=== PATIENT | male | born 1945 | race Caucasian/White ===

== ENCOUNTER 2018-02-06 01:39 | Inpatient (IN) | payer MEDICARE, MEDICAID ==
--- NOTE | 2018-02-06 02:37 | PDOC.FPRHP ---
- History of Present Illness Chief Complaint: Progressive SOB History of Present Illness: 73 yo M w/hx of CHF, HTN, CAD, DM2 here with complaint of progressive SOB and exercise intolerance. He states that for the past month he has noticed a progressively worsening SOB especially with activity. Over the past 4 days he has noticed significant swelling in his legs and a productive cough. He also complaints of having to prop himself up to sleep for the past few weeks. He states that he is on a "whole bag of medicine" at home, but has not been taking the meds for the past few months. He denies chest pain, headache, change in vision, fever or chills. - Allergies/Adverse Reactions Allergies Allergy/AdvReac Type Severity Reaction Status Date / Time No Known Allergies Allergy Unverified 03/29/15 09:58 - Home Medications Medication Instructions Recorded Confirmed Type Aspirin 1 tab PO DAILY 02/06/18 02/06/18 History Budesonide-Formoterol [Symbicort 2 puff INH BID 02/06/18 02/06/18 History 80-4.5] Carvedilol [Coreg] 1 tab PO BID 02/06/18 02/06/18 History Furosemide [Lasix] 20 mg PO DAILY 02/06/18 02/06/18 History Ipratropium-Albuterol [Combivent] 2 puff INH QID 02/06/18 02/06/18 History Nitroglycerin 1 tab SL PRN PRN 02/06/18 02/06/18 History Pantoprazole [Protonix] 1 tab PO DAILY 02/06/18 02/06/18 History Pravastatin Sodium [Pravachol] 1 tab PO BID 02/06/18 02/06/18 History - History PMHx: HTN CHF COPD DM Hep C Polysubstance abuse CAD PSHx: s/p stent FHx: Maternal COPD, Alzheimer's Dementia Paternal Anxiety, HTN Social: 40 pack year smoking hx 16-32 oz beer daily Marijuana, Meth - Review of Systems General: denies: fever/chills, weight/appetite/sleep changes Eyes: denies: vision changes ENT: denies: nasal congestion Respiratory: reports: cough (productive), shortness of breath, exercise intolerance Cardiovascular: reports: edema, orthopnea. denies: chest pain Gastrointestinal: denies: nausea, vomiting Genitourinary: denies: polyuria Skin: denies: rashes, lesions Musculoskeletal: denies: pain, tenderness Neurological: denies: numbness, syncope Psychological: denies: anxiety, depression - Vital signs BP: 127/95 HR: 94 RR: 20 Tmax: 97.8 Pox: 100% on RA Wt: 93 kg - Physical Exam Constitutional: NAD, awake, alert and oriented HEENT: normocephalic and atraumatic, PERRLA, EOMI, no scleral icterus Neck: supple, FROM, trachea midline Chest: no-tender to palpation Heart: RRR, normal S1/S2, no murmurs/rubs/gallops, other (1+ pitting edema to knees b/l) Lungs: no respiratory distress, good air movement, no wheezing, other (mild rales at bases) Abdomen: soft, non-tender, bowel sounds present, no masses/distention Musculoskeletal: normal structure, normal tone Neurological: no focal deficit, CN II-XII intact Skin: no rash/lesions Heme/Lymphatic: no unusual bruising or bleeding Psychiatric: normal mood and affect FMR H&P: Results - Labs Result Diagrams: 02/06/18 02:46 02/06/18 02:46 - EKG Interpretation EKG: NSR, T wave inversions I, II, V5 and 6, LBBB FMR H&P: A/P - Problem List (1) Acute exacerbation of congestive heart failure Current Visit: Yes Status: Acute Priority: High Code(s): I50.9 - HEART FAILURE, UNSPECIFIED Qualifiers: Heart failure type: unspecified Qualified Code(s): I50.9 - Heart failure, unspecified (2) HTN (hypertension) Current Visit: Yes Status: Chronic Priority: Medium Code(s): I10 - ESSENTIAL (PRIMARY) HYPERTENSION (3) CAD (coronary artery disease) Current Visit: Yes Status: Chronic Priority: Medium Code(s): I25.10 - ATHSCL HEART DISEASE OF [place] CORONARY ARTERY W/O ANG PCTRS (4) Elevated troponin Current Visit: Yes Status: Acute Priority: High Code(s): R74.8 - ABNORMAL LEVELS OF OTHER SERUM ENZYMES (5) COPD (chronic obstructive pulmonary disease) Current Visit: Yes Status: Chronic Priority: Medium (6) Hepatitis C Current Visit: Yes Status: Chronic Priority: Low Code(s): B19.20 - UNSPECIFIED VIRAL HEPATITIS C WITHOUT HEPATIC COMA (7) ABDIEL (acute kidney injury) Current Visit: Yes Status: Acute Code(s): N17.9 - ACUTE KIDNEY FAILURE, UNSPECIFIED - Plan Acute CHF exacerbation - pt given 40 IV lasix in ED, continue to diurese - pt currently does not have a new O2 requirement - unclear as to if or when the patient had an echo, will order for am - strict i/o - pt has not been taking his coreg for months, will hold while here and restart when back to baseline - admit to tele HTN - restart home meds, adjust dose as needed CAD - start high intensity statin ABDIEL vs CKD - Continue to diurese, this is likely dt poor perfusion rather than low volume given overloaded status - Monitor BMP DM - per pt he has hx of dm, however he is not on any meds and A1c is 5.8 Hep C - per history. No hx of treatment. Will need outpt follow up. COPD - appears to be controlled at this time - continue home meds - monitor O2 sats and work of breathing Elevated trops - repeat x3 w/EKG - likely related to demand Elevated BNP - secondary to volume overload. Diurese as above PPx lovenox Diet heart healthy, low carb Code DNR Dispo: Pt is currently stable and having no problem oxygenating. Will work to diurese while monitoring respiratory status. Likely length of stay 48-72 hours. FMR H&P: Upper Level - Pertinent history CC: Shortness of Breath Patient seen 02/06/18 at 0215 PCP: None. City call admission 73 year old white male presents with acute worsening of dyspnea. He has been short of breath for several months and noticed it was getting harder and harder to walk without getting out of breath. He was released from half-way about 4 months ago and states he has not been taking his medications but "I don't know why". Today, he noticed he could not walk to the bathroom without getting out of breath. He reports orthopnea, cough, abdominal swelling, peripheral edema, and nausea. Denies fevers, chills, headache, chest pain/jaw pain/neck pain/back pain, vomiting, and diarrhea. 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 Pulses full and equal in upper extremities bilaterally Respiratory: Faint bibasilar rales, no wheezing or rhonchi, breathing nonlabored Abdomen: NT, no guarding/rebound. Normal bowel sounds. Extremities: 1+ edema to tibial tuberosity bilaterally. Equal movements bilaterally. Moves all extremities Skin: Stasis dermatitis discoloartion of lowe rextremities Neuro: CN II - XII intact. No focal deficits Psych: Mood and affect appropraite. Judgement and insight intact. - Plan Date/Time: 02/06/18236 ITravis DO, have evaluated this patient and agree with findings/plan as outlined by video editing intern resident. Pertinent changes/additions are listed here. 73 year old white male presents with: 1) Acute CHF exacerbation - Admit to telemetry. Not requiring O2 supplementation. Continue iv Lasix, strict I&Os, echo in the morning. Consider cards consult in morning to help patient establish with a retail shift supervisor. Refer to heart failure clinic on discharge 2) Incomplete bundle branch block on EKG - Patient's symptoms more consistent with CHF exacerbation. Likely chronic changes but no old EKG available. Trend EKGs and cardiac enzymes. 3) CAD - Aspirin, statin 4) History of NSTEMI - Hold beta leslee for now. Aspirin, statin, beta leslee , and GRACIA inhibitor on discharge. 5) COPD - DuoNebs prn. Med rec if possible so patient may be discharged on appropriate treatment 6) HTN - Restart home meds if list can be found. Otherwise, Beta leslee and GRACIA inhibitor in light of CAD, CHF, and history of NSTEMI 7) Questionable history of DM2 - Check A1c 8) Marijuana abuse - Patient counseled on cessation 9) Methamphetamine abuse - Patient admitted to methamphetamine abuse. I counseled him that this may worsen his other medical conditions 10) Hepatitis C - Untreated. Will recommend patient establish with PCP so referrals can be placed to pursue treatment
[2018-02-06] MEDS ORDERED: Dextrose 50% Abboject 50 ML SYRINGE SLOW IVP PRN (02:42)
[2018-02-06] MEDS ORDERED: HumaLOG 300 UNITS/3 ML VIAL SC PRN ×2 (02:42)
[2018-02-06] MEDS ORDERED: Dextrose 5% in Water 1,000 ML IV PRN (02:42)
[2018-02-06 03:03] LABS: #Eosinphils 0.1 thou/uL (0.0-0.7); #Lymphocytes 1.6 thou/uL (1.20-3.40); #Monocytes 0.5 thou/uL (0.11-0.59); #Neutrophils 5.5 thou/uL (1.40-6.50); %Basophils 0.4 % (0.0-1.0); %Eosinophils 1.8 % (0.0-10.0); %Lymphocytes 20.5 % (21.0-51.0); %Monocytes 6.3 % (0.0-10.0); Hemoglobin 13.7 g/dL (14.0-18.0); Mean Corpuscular HGB CONC 33.6 g/dL (32.0-36.0); Mean Corpuscular Hemoglobin 30.9 pg (27.0-31.0); Mean Platelet Volume 8.5 fL (7.4-10.4); Platelet Count 193 thou/uL (130-400); RBC Distribution Width 13.6 % (11.5-14.5); Red Blood Cell (RBC) Count 4.43 mill/uL (4.70-6.10); White Blood Cell (WBC) Count 7.7 thou/uL (4.8-10.8)
[2018-02-06 03:21] LABS: CKMB 2.1 ng/mL (0-6.6); Troponin I 0.045 ng/mL (< 0.028)
[2018-02-06 03:35] LABS: Hemoglobin A1c 5.8 % (4.0-6.0)
[2018-02-06 03:40] LABS: Cardiac Risk 5.1 (Less than 4.5)
[2018-02-06 03:41] LABS: ALT (SGPT) 23 U/L (8-55); AST (SGOT) 22 U/L (5-34); Albumin 4.2 g/dL (3.4-4.8); Alkaline Phosphatase 120 U/L (40-150); Anion Gap 14 mmol/L (10-20); BUN (Urea Nitrogen) 19 mg/dL (8.4-25.7); Bilirubin, Total 1.2 mg/dL (0.2-1.2); Calc. Creatinine Clearance 0 mL/min (70-130); Calcium 9.5 mg/dL (7.8-10.44); Carbon Dioxide 24 mmol/L (23-31); Chloride 101 mmol/L (98-107); Estimated GFR-MDRD 54; Globulin 3.6 g/dL (2.4-3.5); Glucose 108 mg/dL (83-110); Potassium 4.4 mmol/L (3.5-5.1); Protein, Total 7.8 g/dL (5.8-8.1); Sodium 135 mmol/L (136-145)
[2018-02-06 06:23] LABS: CKMB 2.1 ng/mL (0-6.6)
[2018-02-06] MEDS: Furosemide 100 MG/10 ML VIAL SLOW IVP SCH ×2 (06:25→14:51)
[2018-02-06] MEDS: Mometasone/Formoterol 120 PUFF INHALER INH SCH ×2 (07:37→19:55)
[2018-02-06] MEDS ORDERED: Acetaminophen 325 MG TAB PO PRN (08:30)
[2018-02-06] MEDS ORDERED: traMADol HCl 50 MG TAB PO PRN (08:31)
[2018-02-06 08:51] LABS: Troponin I 0.054 ng/mL (< 0.028)
[2018-02-06] MEDS ORDERED: Enoxaparin Sodium 40 MG/0.4 ML SYRINGE SC SCH (09:00)
[2018-02-06] MEDS: Aspirin 81 mg Enteric Coated Tablet PO SCH (09:13)
[2018-02-06 09:16] LABS: Syphilis Antibody Nonreactive (Nonreactive); Syphilis Antibody Index 0.05 S/CO (<1.00 Non-Reactive)
--- NOTE | 2018-02-06 11:38 | HP ---
I have discussed the history and physical and case with Dr. Danielito Martinez. I agree with his assessmen t and plan. HISTORY OF PRESENT ILLNESS: Briefly, Mr. Kruse is a 73-year-old white male patient who for the la several days has had dyspnea on exertion and orthopnea with increased swelling in his legs. He pr esented to the ER and found to be in heart failure. He was given intravenous Lasix with good results . PHYSICAL EXAMINATION: GENERAL APPEARANCE: This morning, he is awake and alert, in no acute distress. VITAL SIGNS: His blood pressure is currently 102/63, his pulse rate is 94 regular. He is afebrile. His room air O2 saturation is 97%. EAR, NOSE, AND THROAT: Clear. NECK: Supple, no JVD. CARDIAC: Heart rhythm is regular and rate 80 beats per minute. No murmur, no gallop noted. LUNGS: Breath sounds diminished. Few scattered rales. No distress. No use of accessory muscles. ABDOMEN: Flat and soft. EXTREMITIES: A 2-3+ pretibial edema to above the level of the knee. LABORATORY DATA AND IMAGING DATA: CBC: White count 7,700, hemoglobin 13.7, hematocrit 40.8 with an MCV of 92. Chemistries: Sodium 135, potassium 4.4, chloride 101, bicarbonate 24, BUN 19, and creati nine 1.31. His troponins are indeterminate at 0.045 and 0.054. Liver enzymes are normal. Chest x-r ay consistent with mild pulmonary congestion. ASSESSMENT: Acute decompensated heart failure. PLAN: Admitted patient already on Lasix. We will later add ACEs and beta blockers.
[2018-02-06 12:18] LABS: Troponin I 0.034 ng/mL (< 0.028)
[2018-02-06 13:08] LABS: HIV (1/2) Antibody/Antigen Non-Reactive (NonReactive); HIV 1/2 INDEX 0.05 S/CO (<1.00)
--- NOTE | 2018-02-06 14:13 | PQF ---
CLINICAL DOCUMENTATION IMPROVEMENT CLARIFICATION FORM: ICD-10 Updated PLEASE DO AN ADDENDUM TO THE PROGRESS NOTE WITH ANY DOCUMENTATION UPDATES OR ADDITIONS AND CARRY THROUGH TO DC SUMMARY. THANK YOU. DATE: 02/06 ATTN: DR. BEN HAMPTON/ DR. Floridalma GAMA Please exercise your independent, professional judgment in responding to the clarification form. Clinical indicators are provided on the bottom of this form for your review Please check appropriate box(s): [ x ] Elevated Troponins D/T Demand Ischemia [ ] Elevated Troponins not D/T Demand Ischemia [ ] Associated Diagnosis: [ ] Other diagnosis [ ] Unable to determine For continuity of documentation, please document condition throughout progress notes and discharge summary. Thank You. CLINICAL INDICATORS - SIGNS / SYMPTOMS/ LABS are present in the medical record: TROPONIN I: 0.045, 0.054, 0.034 (02/06) PHYSICIAN H&P DOCUMENTATION 02/06: PLAN: ELEVATED TROPS - LIKELY RELATED TO DEMAND RISK FACTORS: ACUTE DECOMPENSATED CHF HX OF CAD W/MO S/P STENT SMOKES CIGARETTES DAILY ALCOHOL USE POLYSUBSTANCE ABUSE (MARIJUANA & METH) TREATMENT: SERIAL CARDIAC ENZYMES IV LASIX CARDIOLOGY CONSULT THANK YOU! Mary (This form is maintained as a part of the permanent medical record) 2014 [employer]. All Rights Reserved Mary Escalante RN, BSN [email or web address] Office: [phone] [facility]
--- NOTE | 2018-02-06 14:18 | CON ---
DATE OF CONSULTATION: 02/06/2018 REASON FOR CONSULTATION: Shortness of breath and likely heart failure. HISTORY OF PRESENT ILLNESS: Mr. Kruse is a 73-year-old gentleman who has not sought medical care over the last several years. He recently presented with shortness of breath. He states he had short ness of breath over the last month. He has had lower extremity edema, PND, and orthopnea. No chest pain or pressure noted. No previous history of cardiomyopathy. He does give a history of marijuana and methamphetamine use. He states he has been on parole for DWI and has not taken drugs, but then restarted recently with hi s last dose 1 month ago. PAST MEDICAL HISTORY: Hypertension, COPD, diabetes mellitus, hepatitis C. SOCIAL HISTORY: A 20 pack per year smoker, 16-32 alcoholic beverages per day. REVIEW OF SYSTEMS: Ten-point review of systems is reviewed and it as above. MEDICATIONS: None. PHYSICAL EXAMINATION: GENERAL: He does appear older than staged age and disheveled. VITAL SIGNS: Blood pressure 99/59, pulse 86, temperature 97.2. NEUROLOGIC: The patient is alert and oriented times 3 with no focal neurologic deficits. HEENT: Sclerae without icterus. Mouth has moist mucous membranes with normal pallor. NECK: No JVD. Carotid upstroke brisk. No bruits bilaterally. LUNGS: Clear to auscultation with unlabored respirations. BACK: No scoliosis or kyphosis. CARDIAC: Regular rate and rhythm with normal S1 and S2. No S3 or S4 noted. No significant rubs, mu rmurs, thrills, or gallops noted throughout the precordium. PMI is not displaced. There is no sangeeta ternal heave. ABDOMEN: Soft, nontender, nondistended. No peritoneal signs present. No hepatosplenomegaly. No ab normal striae. EXTREMITIES: 2+ femoral and 2+ dorsalis pedis pulses. No cyanosis, clubbing, or edema. SKIN: No gross abnormalities. PERTINENT LABORATORY DATA: Hemoglobin 13.7, troponin 0.054, and creatinine 1.3. BNP not drawn. IMPRESSION: 1. Lower extremity edema. 2. Shortness of breath. RECOMMENDATIONS: Mr. Kruse likely has systolic heart failure. Would recommend echo with Doppler to assess LVEF. Would continue with diuresis. His creatinine is mildly elevated. I will discuss tr eatment options after reviewing his echo. He is currently DNR and maybe insisting more conservative approach. Certainly given his continued polysubstance abuse would certainly seem reasonable.
[2018-02-06 14:19] LABS: Hep C IgG Ab Reflex HepC Qnt (NonReactive)
[2018-02-06 14:22] LABS: Hep C Index 15.27 S/CO (0-0.79)
[2018-02-06] MEDS: Gabapentin 300 MG CAP PO SCH ×2 (14:51→21:35)
[2018-02-06] MEDS ORDERED: Sodium Chloride 0.9% 500 ML IV SCH (21:15)
[2018-02-06] MEDS ORDERED: Communication Order-Pharmacy FS SCH (21:30)
[2018-02-06] MEDS: Atorvastatin Calcium 40 MG TAB PO SCH (21:35)
[2018-02-06] MEDS ORDERED: Sodium Chloride 0.9% 250 ML IV SCH (21:45)
[2018-02-07] MEDS ORDERED: Sodium Chloride 0.9% 250 ML IV SCH (01:00)
[2018-02-07 05:16] LABS: #Eosinphils 0.2 thou/uL (0.0-0.7); #Lymphocytes 1.8 thou/uL (1.20-3.40); #Monocytes 0.5 thou/uL (0.11-0.59); #Neutrophils 4.5 thou/uL (1.40-6.50); %Basophils 0.4 % (0.0-1.0); %Eosinophils 2.7 % (0.0-10.0); %Lymphocytes 25.3 % (21.0-51.0); %Monocytes 7.3 % (0.0-10.0); %Neutrophils 64.3 % (42.0-75.0); Hemoglobin 12.7 g/dL (14.0-18.0); Mean Corpuscular HGB CONC 33.2 g/dL (32.0-36.0); Mean Corpuscular Hemoglobin 30.1 pg (27.0-31.0); Mean Corpuscular Volume 90.4 fl (80.0-94.0); Mean Platelet Volume 8.4 fL (7.4-10.4); Platelet Count 189 thou/uL (130-400); RBC Distribution Width 13.5 % (11.5-14.5); Red Blood Cell (RBC) Count 4.23 mill/uL (4.70-6.10); White Blood Cell (WBC) Count 7.1 thou/uL (4.8-10.8)
[2018-02-07 05:28] LABS: ALT (SGPT) 18 U/L (8-55); AST (SGOT) 20 U/L (5-34); Albumin 3.5 g/dL (3.4-4.8); Alkaline Phosphatase 107 U/L (40-150); Anion Gap 15 mmol/L (10-20); BUN (Urea Nitrogen) 19 mg/dL (8.4-25.7); Bilirubin, Total 1.2 mg/dL (0.2-1.2); Calc. Creatinine Clearance 74 mL/min (70-130); Calcium 8.8 mg/dL (7.8-10.44); Carbon Dioxide 25 mmol/L (23-31); Chloride 98 mmol/L (98-107); Estimated GFR-MDRD 61; Globulin 3.1 g/dL (2.4-3.5); Glucose 112 mg/dL (83-110); Potassium 3.6 mmol/L (3.5-5.1); Protein, Total 6.6 g/dL (5.8-8.1); Sodium 134 mmol/L (136-145)
[2018-02-07] MEDS ORDERED: Sodium Chloride 0.9% 1,000 ML IV SCH (06:00)
[2018-02-07] MEDS: Furosemide 100 MG/10 ML VIAL SLOW IVP SCH (06:10)
[2018-02-07] MEDS: Aspirin 81 mg Enteric Coated Tablet PO SCH (06:11)
[2018-02-07] MEDS: Gabapentin 300 MG CAP PO SCH ×3 (06:11→20:45)
[2018-02-07] MEDS: Mometasone/Formoterol 120 PUFF INHALER INH SCH ×2 (06:25→18:58)
--- NOTE | 2018-02-07 06:44 | PDOC.FM ---
- Subjective Subjective: Pt reports doing a little better this morning. Says breathing has improved some. Denies any chest pain. Denies any acute SOB. Denies n/v/d/c. No other concerns or complaints at this time. No acute events overnight - Objective MAR Reviewed: Yes Vital Signs & Weight: Vital Signs (12 hours) Temp Pulse Resp BP Pulse Ox 02/07/18 05:00 92 L 02/07/18 04:00 97.5 F L 88 20 101/59 L 92 L 02/07/18 00:01 84/54 L 93 L 02/07/18 00:00 98.9 F 84 20 136/65 93 L 02/06/18 22:31 129/61 02/06/18 22:27 82 20 82/54 L 02/06/18 20:42 93/52 L 02/06/18 19:55 80/50 L 02/06/18 19:49 98.1 F 82 24 H 146/67 H 98 02/06/18 19:43 98.1 F 82 24 H 83/52 L 98 Weight Weight 93.531 kg I&O: 02/05/18 02/06/18 02/07/18 06:59 06:59 06:59 Intake Total 360 2160 Output Total 400 7275 Balance -40 -1710 Result Diagrams: 02/07/18 04:54 02/07/18 04:53 EKG Reviewed by me: Yes Radiology Reviewed by me: Yes (ECHO: EF 24-30%, Aortic mod-severe) Phys Exam - Physical Examination Constitutional: NAD HEENT: PERRLA, moist MMs, sclera anicteric Neck: no nodes, no JVD, full ROM Respiratory: no wheezing diffuse rales and crackles Cardiovascular: RRR, no significant murmur, no rub Gastrointestinal: soft, non-tender, no distention, positive bowel sounds Musculoskeletal: pulses present, edema present (trace edema in le bilaterally. Some redness noted) Neurological: non-focal, normal sensation, moves all 4 limbs Psychiatric: normal affect, A&O x 3 Skin: no rash, normal turgor, cap refill <2 seconds Dx/Plan (1) Acute exacerbation of congestive heart failure Code(s): I50.9 - HEART FAILURE, UNSPECIFIED Status: Acute Qualifiers: Heart failure type: unspecified Qualified Code(s): I50.9 - Heart failure, unspecified (2) ABDIEL (acute kidney injury) Code(s): N17.9 - ACUTE KIDNEY FAILURE, UNSPECIFIED Status: Acute (3) CAD (coronary artery disease) Code(s): I25.10 - ATHSCL HEART DISEASE OF [place] CORONARY ARTERY W/O ANG PCTRS Status: Chronic (4) COPD (chronic obstructive pulmonary disease) Status: Chronic (5) HTN (hypertension) Code(s): I10 - ESSENTIAL (PRIMARY) HYPERTENSION Status: Chronic (6) Hepatitis C Code(s): B19.20 - UNSPECIFIED VIRAL HEPATITIS C WITHOUT HEPATIC COMA Status: Chronic - Plan Plan: Acute systolic CHF exacerbation -ECHO shows EF 25-30%, mod-severe aortic regurg - continue IV lasix for diuresis - pt currently does not have a new O2 requirement - strict i/o - pt has not been taking his coreg for months, restarted on coreg at lower dose due to bp -will start on lisinopril as well - Trops have trended down HTN - BP low this AM. Lasix dose cut in half -started lisinopril and coreg at low doses CAD - start high intensity statin ABDIEL vs CKD - Continue to diurese, this is likely dt poor perfusion rather than low volume given overloaded status - Monitor BMP DM - per pt he has hx of dm, however he is not on any meds and A1c is 5.8 -Sugars Achs Hep C - Hep C positive. will need to f/u outpatient COPD - appears to be controlled at this time - continue home meds - monitor O2 sats and work of breathing -Duonebs PRN Elevated BNP - secondary to volume overload. Diurese as above
[2018-02-07] MEDS: Carvedilol 3.125 MG TAB PO SCH ×2 (08:21→16:54)
[2018-02-07] MEDS: Lisinopril 2.5 MG TAB PO SCH (08:21)
[2018-02-07] MEDS ORDERED: Iopamidol 370 76% 100 ML VIAL ONE (10:43)
[2018-02-07] MEDS ORDERED: Communication Order-Pharmacy FS SCH (11:15)
--- NOTE | 2018-02-07 12:06 | ADD-PRG ---
DATE OF SERVICE: 02/07/2018 This is an addendum to the note of Dr. Ramy Roman. Mr. Kruse has had a good diuresis and is breathing much easier. He has been seen in consultation by Dr. Andrea. His echo does show a significant systolic heart failure with an EF of 25%. He kiki l be taken for cardiac catheterization later today per Dr. Andrea. We have added GRACIA inhibition a s well as beta blockers to his therapy.
[2018-02-07] MEDS ORDERED: Lidocaine 1% (PF) 30 ML VIAL ONE (12:28)
[2018-02-07 14:35] VITALS: BMI 26.3
[2018-02-07] MEDS ORDERED: Sodium Chloride 0.9% 200 ML IV PRN (14:42)
[2018-02-07] MEDS ORDERED: Acetaminophen/Codeine 30-300mg Tablet PO PRN (14:42)
[2018-02-07] MEDS ORDERED: traMADol HCl 50 MG TAB PO PRN (14:42)
[2018-02-07] MEDS ORDERED: Nitroglycerin 0.4 MG TAB (25 Tab Bottle) SL PRN (14:42)
[2018-02-07] MEDS: Furosemide 40 MG/4 ML VIAL SLOW IVP SCH (15:58)
[2018-02-07] MEDS: Sodium Chloride 0.9% 1,000 ML IV SCH ×2 (15:58→18:04)
--- NOTE | 2018-02-07 19:50 | CT ---
CT OF THE THORAX WITHOUT IV CONTRAST: 02/07/18 INDICATION; Evaluate calcium in ascending aorta status post cardiac catheterization today. FINDINGS: The lack of IV contrast limits evaluation of arterial intraluminal abnormality such as dissection fla ps. There is ectasia of the ascending aorta measuring up to 4.1 cm. There is aneurysmal dilatation of the arch measuring 3.5 cm. The descending thoracic aorta measures 3 cm. There is severe calcificatio ns involving the thoracic aorta and coronary arteries. There are small bilateral pleural effusions wi th bibasilar atelectasis. There is scattered emphysema. No suspicious pulmonary nodule is evident. Th ere is a tiny right anterior pneumothorax. There is a suspected large intra-articular body seen withi n the subcoracoid recess measuring approximately 3.4 cm. This was present on comparison chest radiogr aph dated 03/29/15. There is scattered degenerative change. There is mild splenomegaly. There is some c ontrast within the renal collecting system consistent with the patient's history of recent catheteriz ation. IMPRESSION: 1. Prominent calcifications involving the thoracic aorta and coronary arteries. 2. 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 3. Small bilateral pleural effusion. 4. Tiny right anterior pneumothorax. 5. Mild splenomegaly. Findings were called to aSndie Guerra RN at 5:42 p.m. on 02/07/18. Code CR POS: [facility]
[2018-02-07] MEDS: Atorvastatin Calcium 40 MG TAB PO SCH (20:45)
--- NOTE | 2018-02-07 22:28 | CON ---
DATE OF CONSULTATION: 02/07/2018 HISTORY OF PRESENT ILLNESS: This is a 73-year-old gentleman who presented with progressive dyspnea a nd lower extremity edema over the past week or two. He was found to be in congestive heart failure. The patient had a previous stent to a ramus about 1 year ago in [place], [place]. He was treated for hy pertension and EF at that time was felt to be about 40%. Unfortunately, about 4 months ago, he stopp ed taking all of his medicines and did not have a primary care physician. He underwent cardiac echo demonstrating a 20% ejection fraction and catheterization today demonstrated severe 3-vessel coronary artery disease with moderate to severe aortic insufficiency. No evidence of aortic valve stenosis. It appeared to have a significant calcification of the ascending aorta and a CT scan this afternoon confirmed rather circumferential calcification of the ascending aorta in multiple levels. PAST SURGICAL HISTORY: The patient has had several procedures on both ankles related to a fall with fractures. He has also had a previous right hip replacement. SOCIAL HISTORY: The patient is drug abuser, using both methamphetamines and marijuana. He drinks le ss than a 6-pack of beer a day and smokes about a pack of cigarettes a day. PHYSICAL EXAMINATION: GENERAL: He is an elderly gentleman appearing his stated age of 73. NECK: He has bilateral carotid bruits. CARDIAC: Soft systolic murmur. Regular rate and rhythm. LUNGS: Clear to auscultation anteriorly. ABDOMEN: Soft, nontender, no masses. EXTREMITIES: He has a brownish discoloration of both lower legs from about the mid-calf distally con sistent with chronic venous insufficiency. He has palpable pedal pulse in the right posterior tibial ; however, I am unable to palpate any pedal pulses on the left. He has palpable radial pulses. ASSESSMENT AND PLAN: Given the rather extensive calcification of his ascending aorta, the patient wo uld require ascending aortic replacement in conjunction with aortic valve replacement for his moderat e to severe AI in the face of heart failure with a diminished ejection fraction. He also has 4 or 5 potential targets for grafting. Overall, the patient is a poor candidate for this extensive procedur e and I have discussed this with him.
[2018-02-08] MEDS: Acetaminophen/Codeine 30-300mg Tablet PO PRN ×3 (00:44→20:50)
[2018-02-08] MEDS: Furosemide 40 MG/4 ML VIAL SLOW IVP SCH ×2 (06:11→14:10)
[2018-02-08] MEDS: Mometasone/Formoterol 120 PUFF INHALER INH SCH ×2 (06:58→18:54)
--- NOTE | 2018-02-08 08:34 | PDOC.FM ---
- Subjective Subjective: Pt reports doing better this morning. Says his breathing has improved. Denies any lightheadness or dizziness. Denies any chest pain or acute SOB. Denies any acute events overnight. - Objective MAR Reviewed: Yes Vital Signs & Weight: Vital Signs (12 hours) Temp Pulse Resp BP Pulse Ox 02/08/18 04:00 97.9 F 75 20 125/59 L 93 L 02/08/18 00:41 86 20 141/65 H 02/07/18 20:38 97.7 F 77 20 109/54 L 95 02/07/18 20:37 97.7 F 77 20 95 Weight Admit Weight 93.531 kg Weight 91.943 kg I&O: 02/07/18 02/08/18 02/09/18 06:59 06:59 06:59 Intake Total 2160 2996 Output Total 7275 2450 Balance -5115 546 Result Diagrams: 02/07/18 04:54 02/07/18 04:53 Radiology Reviewed by me: Yes (CT chest shows extensive calcification of Aorta and valve. ) Phys Exam - Physical Examination Constitutional: NAD HEENT: PERRLA, moist MMs Neck: no nodes, supple, full ROM Rales and crackles noted bilaterally Cardiovascular: RRR, no rub systolic murmur noted Gastrointestinal: soft, non-tender, no distention, positive bowel sounds Musculoskeletal: edema present (trace edema and swellling noted in lower extremities bilaterally) Neurological: non-focal, normal sensation, moves all 4 limbs Lymphatic: no nodes Psychiatric: normal affect, A&O x 3 Skin: no rash, normal turgor, cap refill <2 seconds Dx/Plan (1) Acute exacerbation of congestive heart failure Code(s): I50.9 - HEART FAILURE, UNSPECIFIED Status: Acute Qualifiers: Heart failure type: combined systolic and diastolic Qualified Code(s): I50.43 - Acute on chronic combined systolic (congestive) and diastolic ( congestive) heart failure (2) ABDIEL (acute kidney injury) Code(s): N17.9 - ACUTE KIDNEY FAILURE, UNSPECIFIED Status: Acute (3) CAD (coronary artery disease) Code(s): I25.10 - ATHSCL HEART DISEASE OF [place] CORONARY ARTERY W/O ANG PCTRS Status: Chronic (4) COPD (chronic obstructive pulmonary disease) Status: Chronic (5) HTN (hypertension) Code(s): I10 - ESSENTIAL (PRIMARY) HYPERTENSION Status: Chronic (6) Hepatitis C Code(s): B19.20 - UNSPECIFIED VIRAL HEPATITIS C WITHOUT HEPATIC COMA Status: Chronic (7) Aortic valve regurgitation Code(s): I35.1 - NONRHEUMATIC AORTIC (VALVE) INSUFFICIENCY Status: Acute - Plan Plan: Acute systolic CHF exacerbation 2/2 Aortic Regurg -ECHO shows EF 25-30%, mod-severe aortic regurg -CTA shows calcfication of aorta and multiple vessels in heart -CV surgery consulted- Dr. Roach- Possible CABG but poor canidate. Will follow recs - continue IV lasix for diuresis - pt currently does not have a new O2 requirement - strict i/o - pt has not been taking his coreg for months, restarted on coreg at lower dose due to bp -will start on lisinopril as well HTN - BP low this AM. Lasix dose cut in half -started lisinopril and coreg at low doses CAD - start high intensity statin -Shows multiple calcifications -Cardio-Dr. Andrea consulted- follow recs -CV surgery-Dr. Roach consulted- follow recs ABDIEL vs CKD - Continue to diurese, this is likely dt poor perfusion rather than low volume given overloaded status -Improved yesterday. - Monitor BMP DM - per pt he has hx of dm, however he is not on any meds and A1c is 5.8 -Sugars Achs, sugars have been stable Hep C - Hep C positive. will need to f/u outpatient COPD - appears to be controlled at this time - continue home meds - monitor O2 sats and work of breathing -Duonebs PRN Elevated BNP - secondary to volume overload. Diurese as above With patients problems and having trouble with meds and managing his disease in the past patient would like possible SN or shelter placement at this time so he can better take care of his HF and take his medications
[2018-02-08 08:53] LABS: Anion Gap 11 mmol/L (10-20); BUN (Urea Nitrogen) 17 mg/dL (8.4-25.7); Calc. Creatinine Clearance 77 mL/min (70-130); Calcium 9.4 mg/dL (7.8-10.44); Carbon Dioxide 28 mmol/L (23-31); Chloride 98 mmol/L (98-107); Estimated GFR-MDRD 65; Glucose 170 mg/dL (83-110); Sodium 133 mmol/L (136-145)
[2018-02-08] MEDS: Gabapentin 300 MG CAP PO SCH ×3 (08:58→20:50)
[2018-02-08] MEDS: Carvedilol 3.125 MG TAB PO SCH (08:58)
[2018-02-08] MEDS: Aspirin 81 mg Enteric Coated Tablet PO SCH (08:58)
[2018-02-08] MEDS: Lisinopril 2.5 MG TAB PO SCH (08:58)
[2018-02-08 12:16] LABS: HCV log10 3.258 (.); Hep C PCR-Quant 1810 IU/mL (.)
--- NOTE | 2018-02-08 12:35 | ADD-PRG ---
DATE OF SERVICE: 02/08/2018 Mr. Kruse underwent a cardiac catheterization yesterday. He also underwent an echo, which is show ing an EF of only 25%-30% with moderate to severe aortic regurgitation. CT of the chest shows signif icant calcifications of the aorta. Catheter was consistent with triple vessel disease and CV Surgery was consulted. Dr. Roach felt that the patient was a very poor candidate for CABG and had discussed the case with Mr. Kruse. We will likely opt for medical management. Mr. Kruse would also lik marlyn need a chcf and we are awaiting placement.
[2018-02-08] MEDS ORDERED: Communication Order-Pharmacy FS SCH (17:30)
--- NOTE | 2018-02-08 18:50 | PRG ---
DATE OF SERVICE: 02/08/2018 SUBJECTIVE: Mr. Kruse is doing well, no current complaints. OBJECTIVE: VITAL SIGNS: Current vital signs, blood pressure 119/56, pulse 63, temperature 97.8. LUNGS: Clear to auscultation. CARDIAC: Regular rate and rhythm. ABDOMEN: Soft, nontender, nondistended. EXTREMITIES: No edema. IMPRESSION: 1. Severe coronary artery disease. 2. Multivessel disease. 3. Ischemic cardiomyopathy. 4. Tobacco abuse. 5. Illicit drug use. RECOMMENDATIONS: Mr. Kurse was recently seen and evaluated by Dr. Chris Roach. He was not felt t o be an appropriate candidate for AVR and bypass surgery. He has a porcelain aorta and felt to be pr ohibitive risk for cross-clamp. I discussed multiple options with Mr. Kruse including medical therapy versus staged PCI. I do not feel he would benefit from intervention to the intermediate ramus branch. He has in-stent restenosi s about 99%. The vessel appears small. A 2.25 stent was placed, a year and a half ago. Compliance is an issue. I do not feel it is prudent to proceed with restenting a 2.25 vessel with a bare metal stent. There is a very high restenosis rate. It is prudent to proceed with stent placement to the right coronary artery. It is a very large vesse l with a large distribution. His LAD is felt to be moderate to severe and not felt to be as critical as the right coronary artery. He has opted to proceed with stent placement to the right coronary ar levi. We will proceed in a.m. I discussed the procedure in full detail with Mr. Kruse. The risk s of the procedure were also discussed. The risks of the procedure include but are not limited to th e following: , stroke, DE, need for emergency surgery, loss of limb, bleeding, and infection, a s well as a reaction to the dye causing kidney failure and needing long-term dialysis. I also discus sed the risks of PCI to include all of the above including coronary dissection and perforation in add ition to acute stent thrombosis and restenosis. All questions about the procedure were answered. Gi magdalena the above, the patient agreed to proceed with coronary angiography and possible PCI. All questio ns were answered. Given the above, the patient agreed to proceed with the above procedure.
[2018-02-08] MEDS: Carvedilol 6.25 MG TAB PO SCH (20:49)
[2018-02-08] MEDS: Atorvastatin Calcium 40 MG TAB PO SCH (20:50)
[2018-02-08] MEDS ORDERED: CARVEDILOL PO SCH ×2 (21:00)
[2018-02-09] MEDS: Furosemide 40 MG/4 ML VIAL SLOW IVP SCH ×2 (05:06→16:00)
[2018-02-09] MEDS: Aspirin 81 mg Enteric Coated Tablet PO SCH (05:56)
[2018-02-09] MEDS: Lisinopril 10 MG TAB PO SCH (05:57)
[2018-02-09] MEDS: Carvedilol 6.25 MG TAB PO SCH ×2 (05:57→23:26)
[2018-02-09] MEDS: Gabapentin 300 MG CAP PO SCH ×3 (05:58→21:31)
[2018-02-09] MEDS ORDERED: Sodium Chloride 0.9% 1,000 ML IV SCH ×2 (06:00→09:00)
[2018-02-09] MEDS: Mometasone/Formoterol 120 PUFF INHALER INH SCH ×2 (06:49→19:16)
[2018-02-09] MEDS ORDERED: Lidocaine 1% (PF) 30 ML VIAL ONE (08:17)
[2018-02-09] MEDS ORDERED: Heparin 10,000 UNITS/1 ML VIAL ONE (08:26)
[2018-02-09] MEDS ORDERED: Clopidogrel Bisulfate 300 MG TAB ONE (08:30)
[2018-02-09] MEDS ORDERED: Midazolam HCl 2 mg/2 ml Vial ONE ×2 (08:30→08:33)
[2018-02-09] MEDS ORDERED: Fentanyl 100 MCG/2 ML VIAL ONE (08:31)
[2018-02-09] MEDS ORDERED: Nitroglycerin 100MG/250ML BOT 250 ML ONE (08:35)
[2018-02-09] MEDS ORDERED: TICAGRELOR 90 MG TABLET ONE (08:45)
[2018-02-09] MEDS ORDERED: Aggrastat 12.5 MG/250 ML 0 ML ONE (08:48)
--- NOTE | 2018-02-09 08:49 | PDOC.FM ---
- Subjective Subjective: Pt doing well. Denies any SOB or chest pain overnight. Denies any acute events overnight. No other problems. Plan for stenting of vessels today. Pt O2 sats well still on room air. - Objective MAR Reviewed: Yes Vital Signs & Weight: Vital Signs (12 hours) Temp Pulse Resp BP Pulse Ox 02/09/18 08:33 97.9 F 58 L 16 02/09/18 05:57 58 L 16 116/55 L 02/09/18 04:00 97.9 F 61 16 118/56 L 94 L Weight Admit Weight 93.531 kg Weight 90.265 kg I&O: 02/08/18 02/09/18 02/10/18 06:59 06:59 06:59 Intake Total 2996 1787 Output Total 2450 2725 Balance 546 -988 Result Diagrams: 02/07/18 04:54 02/08/18 08:09 EKG Reviewed by me: Yes Radiology Reviewed by me: Yes (No new imaging to review) Phys Exam - Physical Examination Constitutional: NAD HEENT: PERRLA, moist MMs, TM's clear Neck: no nodes, no JVD, supple, full ROM Respiratory: no wheezing, no rhonchi Mild rales and crackles noted bilaterally Cardiovascular: RRR, no rub light systolic murmur noted Gastrointestinal: soft, no distention, positive bowel sounds Musculoskeletal: pulses present, edema present (trace edema and chronic venostasis noted) Neurological: non-focal, normal sensation, moves all 4 limbs Lymphatic: no nodes Psychiatric: normal affect, A&O x 3 Skin: no rash, normal turgor, cap refill <2 seconds Dx/Plan (1) CAD (coronary artery disease) Code(s): I25.10 - ATHSCL HEART DISEASE OF [place] CORONARY ARTERY W/O ANG PCTRS Status: Chronic (2) Acute exacerbation of congestive heart failure Code(s): I50.9 - HEART FAILURE, UNSPECIFIED Status: Acute Qualifiers: Heart failure type: combined systolic and diastolic Qualified Code(s): I50.43 - Acute on chronic combined systolic (congestive) and diastolic ( congestive) heart failure (3) ABDIEL (acute kidney injury) Code(s): N17.9 - ACUTE KIDNEY FAILURE, UNSPECIFIED Status: Acute (4) COPD (chronic obstructive pulmonary disease) Status: Chronic (5) HTN (hypertension) Code(s): I10 - ESSENTIAL (PRIMARY) HYPERTENSION Status: Chronic (6) Hepatitis C Code(s): B19.20 - UNSPECIFIED VIRAL HEPATITIS C WITHOUT HEPATIC COMA Status: Chronic (7) Aortic valve regurgitation Code(s): I35.1 - NONRHEUMATIC AORTIC (VALVE) INSUFFICIENCY Status: Acute - Plan Plan: CAD -Going for stenting of RCA. It is severely occluded per Dr. Moran. -Has mod-severe occlusion of LAD- will observe for now - start high intensity statin -CTA Shows multiple calcifications -Cardio-Dr. Andrea consulted- follow recs- Stent -CV surgery-Dr. Roach consulted- follow recs- not good canidate for CABG Acute systolic CHF exacerbation 2/2 Aortic Regurg -ECHO shows EF 25-30%, mod-severe aortic regurg -CTA shows calcfication of aorta and multiple vessels in heart -CV surgery consulted- Dr. Roach- Possible CABG but poor canidate. Will follow recs - continue IV lasix for diuresis - pt currently does not have a new O2 requirement - strict i/o - pt has not been taking his coreg for months, restarted on coreg at lower dose due to bp -will start on lisinopril as well HTN - BP low this AM. Lasix dose cut in half -started lisinopril and coreg back at home doses to see how he tolerates ABDIEL vs CKD - Continue to diurese, this is likely dt poor perfusion rather than low volume given overloaded status -Improved yesterday. - Monitor BMP DM - per pt he has hx of dm, however he is not on any meds and A1c is 5.8 -Sugars Achs, sugars have been stable Hep C - Hep C positive. will need to f/u outpatient COPD - appears to be controlled at this time - continue home meds - monitor O2 sats and work of breathing -Duonebs PRN Elevated BNP - secondary to volume overload. Diurese as above With patients problems and having trouble with meds and managing his disease in the past patient would like possible SN or [facility] placement at this time so he can better take care of his HF and take his medications. Rehab placement in [place] pending
--- NOTE | 2018-02-09 09:35 | PQF ---
CLINICAL DOCUMENTATION IMPROVEMENT CLARIFICATION FORM: ICD-10 Updated PLEASE DO AN ADDENDUM TO THE PROGRESS NOTE WITH ANY DOCUMENTATION UPDATES OR ADDITIONS AND CARRY THROUGH TO DC SUMMARY. THANK YOU. DATE: 02/09 ATTN: DR. CINDY ZAMAN/ DR. MAR GAMA Please exercise your independent, professional judgment in responding to the clarification form. Clinical indicators are provided on the bottom of this form for your review Please check appropriate box(s): [ ] Acute Renal Failure (ARF) / Acute Kidney Injury (ABDIEL) (Please specify associated condition, if applicable) [ ] Other Etiology or underlying conditions related to the diagnosis of ARF / ABDIEL: [ ] Acute on Chronic Renal Failure please specify Stage of CKD (see below) [ ] CKD without ARF/ABDIEL please specify Stage of CKD [ ] Other diagnosis [ ] Unable to determine National Kidney Foundation Guidelines for CKD Staging Stage I Kidney damage with normal or increased GFR GFR > 90 Stage II Kidney damage with mildly decreased GFR GFR 60-89 Stage III Kidney damage with moderately decreased GFR GFR 30-59 Stage IV Kidney damage with severely decreased GFR GFR 16-29 Stage V Kidney failure GFR<15 ESRD End Stage Renal Disease On dialysis For continuity of documentation, please document condition throughout progress notes and discharge summary. Thank You. CLINICAL INDICATORS - SIGNS / SYMPTOMS / LABS BUN: 19 CR: 1.31 GFR: 54 (02/06, ADMIT) 19 1.17 61 (02/07) 17 1.11 65 (02/08) PHYSICIAN H&P DOCUMENTATION 02/06; PN DATED 02/07: ASSESSMENT/PLAN: ABDIEL VS CKD, THIS IS LIKELY D/T POOR PERFUSION RATHER THAN LOW VOLUME GIVEN OVERLOADED STATUS RISK FACTORS: HTN CAD ACUTE SYSTOLIC CHF HX OF DM II TREATMENTS: IVF (NS 02/06 - PRESENT) SERIAL BMP THANK YOU! Mary (This form is maintained as a part of the permanent medical record) 2015 [email or web address] All Rights Reserved Mary Escalante, RN, BSN [email or web address] Office: [phone] [facility]
[2018-02-09] MEDS ORDERED: Iopamidol 370 76% 100 ML VIAL ONE (15:48)
[2018-02-09] MEDS ORDERED: Iopamidol 370 76% 50 ML VIAL FS ONE (15:48)
[2018-02-09] MEDS: Acetaminophen/Codeine 30-300mg Tablet PO PRN (16:15)
[2018-02-09] MEDS: Atorvastatin Calcium 40 MG TAB PO SCH (21:31)
[2018-02-10 05:48] LABS: #Eosinphils 0.2 thou/uL (0.0-0.7); #Lymphocytes 1.3 thou/uL (1.20-3.40); #Monocytes 0.6 thou/uL (0.11-0.59); #Neutrophils 4.8 thou/uL (1.40-6.50); %Basophils 0.6 % (0.0-1.0); %Eosinophils 2.6 % (0.0-10.0); %Lymphocytes 19.2 % (21.0-51.0); %Monocytes 8.5 % (0.0-10.0); %Neutrophils 69.1 % (42.0-75.0); Hemoglobin 12.8 g/dL (14.0-18.0); Mean Corpuscular HGB CONC 32.9 g/dL (32.0-36.0); Mean Corpuscular Hemoglobin 30.2 pg (27.0-31.0); Mean Corpuscular Volume 91.7 fl (80.0-94.0); Mean Platelet Volume 8.2 fL (7.4-10.4); Platelet Count 184 thou/uL (130-400); RBC Distribution Width 13.5 % (11.5-14.5); Red Blood Cell (RBC) Count 4.23 mill/uL (4.70-6.10); White Blood Cell (WBC) Count 6.9 thou/uL (4.8-10.8)
[2018-02-10] MEDS: Furosemide 40 MG/4 ML VIAL SLOW IVP SCH (05:55)
[2018-02-10 06:02] LABS: ALT (SGPT) 12 U/L (8-55); AST (SGOT) 19 U/L (5-34); Albumin 3.5 g/dL (3.4-4.8); Alkaline Phosphatase 93 U/L (40-150); Anion Gap 10 mmol/L (10-20); BUN (Urea Nitrogen) 21 mg/dL (8.4-25.7); Bilirubin, Total 0.7 mg/dL (0.2-1.2); Calc. Creatinine Clearance 71 mL/min (70-130); Calcium 9.2 mg/dL (7.8-10.44); Carbon Dioxide 29 mmol/L (23-31); Chloride 97 mmol/L (98-107); Estimated GFR-MDRD 63; Globulin 3.3 g/dL (2.4-3.5); Glucose 96 mg/dL (83-110); Potassium 4.1 mmol/L (3.5-5.1); Protein, Total 6.8 g/dL (5.8-8.1); Sodium 132 mmol/L (136-145)
--- NOTE | 2018-02-10 06:56 | PDOC.FM ---
- Subjective Subjective: Pt reports doing well this morning. Breathing is doing well. No acute episodes of SOB. No chest pain. No complications after stent placement yesterday. Says they are working on rehab in [place], [place]. No other concerns or complaints at this time. Denies any fever/chills. Denies any n/v/d/c. Says swelling is better and feet feel better. - Objective MAR Reviewed: Yes Vital Signs & Weight: Vital Signs (12 hours) Temp Pulse Resp BP BP BP Pulse Ox 02/10/18 04:00 98.3 F 62 17 106/51 L 95 02/09/18 23:26 103/54 L 02/09/18 19:45 97.5 F L 61 20 103/54 L 96 02/09/18 19:18 94 L 02/09/18 19:16 95 Weight Admit Weight 93.531 kg Weight 87.453 kg I&O: 02/08/18 02/09/18 02/10/18 06:59 06:59 06:59 Intake Total 2996 178 1910 Output Total 2458 2071 4651 Balance 126 -831 -8628 Result Diagrams: 02/10/18 05:22 02/10/18 05:22 EKG Reviewed by me: Yes Radiology Reviewed by me: Yes <Ramy Roman - Last Filed: 02/10/18 06:54> - Objective Vital Signs & Weight: Vital Signs (12 hours) Temp Pulse Resp BP BP BP Pulse Ox 02/10/18 09:36 131/60 02/10/18 09:10 98.4 F 66 19 131/60 98 02/10/18 07:27 73 16 02/10/18 04:00 98.3 F 62 17 106/51 L 95 02/09/18 23:26 103/54 L Weight Admit Weight 93.531 kg Weight 87.453 kg I&O: 02/09/18 02/10/18 02/11/18 06:59 06:59 06:59 Intake Total 178 1910 Output Total 6219 4651 Balance -498 -9268 Result Diagrams: 02/10/18 05:22 02/10/18 05:22 <Sandra Hancock - Last Filed: 02/10/18 10:22> Phys Exam - Physical Examination Constitutional: NAD HEENT: PERRLA, moist MMs Neck: no nodes, no JVD, supple, full ROM Respiratory: wheezing present Mild rales and crackles noted bilaterally Cardiovascular: RRR, no rub systolic murmur noted Gastrointestinal: soft, non-tender, no distention, positive bowel sounds Musculoskeletal: pulses present, edema present (trace edema with chronic venostasis noted) Neurological: non-focal, normal sensation, moves all 4 limbs Lymphatic: no nodes Psychiatric: normal affect, A&O x 3 Skin: cap refill <2 seconds Deviation from normal: Chronic venostasis rash noted in extremities bilaterally <AbelRamy - Last Filed: 02/10/18 06:54> Dx/Plan (1) CAD (coronary artery disease) Code(s): I25.10 - ATHSCL HEART DISEASE OF [place] CORONARY ARTERY W/O ANG PCTRS Status: Chronic (2) Acute exacerbation of congestive heart failure Code(s): I50.9 - HEART FAILURE, UNSPECIFIED Status: Acute QualifierTitle: Heart failure type: combined systolic and diastolic Qualified Code(s): I50.43 - Acute on chronic combined systolic (congestive) and diastolic (congestive) heart failure (3) ABDIEL (acute kidney injury) Code(s): N17.9 - ACUTE KIDNEY FAILURE, UNSPECIFIED Status: Acute (4) COPD (chronic obstructive pulmonary disease) Status: Chronic (5) HTN (hypertension) Code(s): I10 - ESSENTIAL (PRIMARY) HYPERTENSION Status: Chronic (6) Hepatitis C Code(s): B19.20 - UNSPECIFIED VIRAL HEPATITIS C WITHOUT HEPATIC COMA Status: Chronic (7) Aortic valve regurgitation Code(s): I35.1 - NONRHEUMATIC AORTIC (VALVE) INSUFFICIENCY Status: Acute - Plan Plan: CAD -Postop day 1 of RCA stent placement. -Has mod-severe occlusion of LAD- will observe for now - start high intensity statin -CTA Shows multiple calcifications in aorta and heart vessels -Cardio-Dr. Andrea consulted- follow recs- Stent -Recommend life vest but patient refused yesterday. -CV surgery-Dr. Roach consulted- follow recs- not good canidate for CABG Acute systolic CHF exacerbation 2/2 Aortic Regurg -ECHO shows EF 25-30%, mod-severe aortic regurg -CTA shows calcfication of aorta and multiple vessels in heart -CV surgery consulted- Dr. Roach- Possible CABG but poor canidate. Will follow recs - Switched to PO lasix at this time. - pt currently does not have a new O2 requirement - strict i/o - pt has not been taking his coreg for months, Coreg and lisinopril started on home doses he was on. BP still a little low. May want to lower doses of medications -will start on lisinopril as well HTN -BP on the lower side. -started lisinopril and coreg back at home doses to see how he tolerates. May want to cut back dose. Started on oral lasix ABDIEL-Resolved at this time. - Continue to diurese, this is likely dt poor perfusion rather than low volume given overloaded status -Stable frome yesterday - Monitor BMP -no sign of CKD per GFR DM - per pt he has hx of dm, however he is not on any meds and A1c is 5.8 -Sugars Achs, sugars have been stable Hep C - Hep C positive. will need to f/u outpatient COPD - appears to be controlled at this time - continue home meds - monitor O2 sats and work of breathing -Duonebs PRN Elevated BNP - secondary to volume overload. Diurese as above With patients problems and having trouble with meds and managing his disease in the past patient would like possible or group home placement at this time so he can better take care of his HF and take his medications. Rehab placement in [place] pending. <Ramy Roman - Last Filed: 02/10/18 06:54> Attending Addendum - Attending Addendum Date/Time: 02/10/18 1021 I personally evaluated the patient and discussed the management with Dr. Roman. I agree with the History, Examination, Assessment and Plan documented above with any addition or exceptions noted below. The patient has had increased congestion and cough. Will add tessalon, mucinex and spiriva to his regimen. Otherwise, he is waiting on placement at [facility] in 2 days. <Sandra Hancock - Last Filed: 02/10/18 10:22>
[2018-02-10] MEDS: Mometasone/Formoterol 120 PUFF INHALER INH SCH ×2 (07:27→18:24)
[2018-02-10] MEDS ORDERED: Furosemide 20 MG TAB PO SCH (09:00)
[2018-02-10] MEDS: Carvedilol 6.25 MG TAB PO SCH (09:36)
[2018-02-10] MEDS: Docusate 100 MG CAP PO PRN (09:36)
[2018-02-10] MEDS: Aspirin 81 mg Enteric Coated Tablet PO SCH (09:37)
[2018-02-10] MEDS: Gabapentin 300 MG CAP PO SCH ×3 (09:37→22:40)
[2018-02-10] MEDS: Polyethylene Glycol 3350 17 GM Packet PER TUBE SCH (09:37)
[2018-02-10] MEDS: Lisinopril 10 MG TAB PO SCH (09:37)
[2018-02-10] MEDS ORDERED: PROVENTIL INHALER 6.7 G (200 INHALATIONS) INH PRN (10:35)
--- NOTE | 2018-02-10 11:02 | ADD-PRG ---
DATE OF SERVICE: 02/09/2018 Please add this as an addendum to the note of Dr. Ramy Roman. Mr. Kruse has just returned from cardiac catheterization and stent placement with Dr. Andrea. He had an RCA lesion that was stented. He is awake, alert, in no distress. We also discussed with h im his hepatitis C positivity, and are in a positivity necessitating treatment for hepatitis C. We w ill arrange for intermediate placement and he will follow up with a GI doctor for further treatment o f the hepatitis C. We will reinstitute his usual CAD medications as well.
[2018-02-10] MEDS: Benzonatate 100 MG CAP PO PRN (11:12)
[2018-02-10] MEDS: Acetaminophen/Codeine 30-300mg Tablet PO PRN (11:12)
--- NOTE | 2018-02-10 11:31 | PDOC.CTH ---
Cardiology Progress Note - Subjective Awake, denies acute complaints. Denies chest pain, shortness of breath. Describes swelling to both legs, states has "gotten much better". Plan is for rehab facility in [place]. No problems with stent placement. - Objective Vital Signs Temp Pulse Resp BP BP BP Pulse Ox 02/10/18 09:36 131/60 02/10/18 09:10 98.4 F 66 19 131/60 98 02/10/18 07:27 73 16 02/10/18 04:00 98.3 F 62 17 106/51 L 95 02/09/18 23:26 103/54 L Admit Weight 206 lb 3.2 oz Weight 192 lb 12.8 oz 02/09/18 02/10/18 02/11/18 06:59 06:59 06:59 Intake Total 1787 1910 Output Total 5978 9575 Balance -685 -2477 - Physical Examination General/Neuro: alert & oriented x3, NAD Neck: no JVD present (supple) Lungs: CTA, unlabored respirations Heart: RRR Abdomen: NT/ND, soft Extremities: + edema B (2+ moderate edeme to BLE, chronic venous stasis changes to skin) - Telemetry Telemetry Rhythm: SR 70s-90s, occ PAC - Labs Result Diagrams: 02/10/18 05:22 02/10/18 05:22 Troponin/CKMB CK-MB (CK-2) 2.1 ng/mL (0-6.6) 02/06/18 05:28 Troponin I 0.034 ng/mL (< 0.028) H 02/06/18 11:37 - Assessment/Plan Assessment/Plan: 1. CAD-s/p stent to RCA, additional lesion to LAD, might require further intervention. Continue statin. CV consulted-poor candidate for CABG. Start clopidogrel 75mg daily. 2. Acute systolic CHF exacerbation-appears euvolemic, most recent EF 25%-30%. Rec life vest-patient refusing. Continue carvedilol, lisinopril, titrate up as tolerated. PO furosemide 3. Aortic Regurgitation-echo revealed mod to severe AR. CTA showed calcification of aorta, poor candidate for AVR 4.HTN-was low, slowly improving. 5. ABDIEL-Resolved, BUN/Creat normal this am. Continue PO furosemide 6. COPD-no oxygen requirement, sats stable on RA, cont pulm toilet
[2018-02-10] MEDS ORDERED: Sodium Chloride 0.9% 500 ML IV SCH ×2 (13:30→14:00)
[2018-02-10] MEDS ORDERED: Clopidogrel Bisulfate 75 MG TAB PO SCH (14:15)
--- NOTE | 2018-02-10 14:58 | PRG ---
DATE OF SERVICE: 02/10/2018 SUBJECTIVE: Mr. Kruse is doing okay this morning, but had a drop in blood pressure this afternoon . His pressure dropped to 70 systolic. He received intravenous fluid bolus. He is feeling better. No chest pain or pressure. He says it is getting blurry in terms of his vision when his pressure got real low, feeling better now. OBJECTIVE: LUNGS: Clear. CARDIAC: Normal S1, normal S2. ABDOMEN: Soft, nontender. EXTREMITIES: 1+ edema. The patient's right groin has no ecchymosis. He is mildly tender. LABORATORY DATA: Hemoglobin did not drop today. ASSESSMENT: Hypotension, possibly related to medication doses. PLAN: 1. Hold lisinopril and Coreg next doses. 2. Intravenous fluid bolus being given. 3. Not currently on Plavix. We will resume Plavix.
[2018-02-10] MEDS: Clopidogrel Bisulfate 75 MG TAB PO SCH (17:23)
[2018-02-10] MEDS: guaiFENesin ER 600 MG TAB PO SCH (22:40)
[2018-02-10] MEDS: Atorvastatin Calcium 40 MG TAB PO SCH (22:40)
[2018-02-11] MEDS: Docusate 100 MG CAP PO PRN ×2 (02:38→09:14)
[2018-02-11 05:40] LABS: #Eosinphils 0.2 thou/uL (0.0-0.7); #Lymphocytes 1.4 thou/uL (1.20-3.40); #Monocytes 0.5 thou/uL (0.11-0.59); #Neutrophils 5.4 thou/uL (1.40-6.50); %Basophils 0.4 % (0.0-1.0); %Eosinophils 2.4 % (0.0-10.0); %Lymphocytes 18.9 % (21.0-51.0); %Monocytes 6.5 % (0.0-10.0); %Neutrophils 71.8 % (42.0-75.0); Hemoglobin 12.3 g/dL (14.0-18.0); Mean Corpuscular HGB CONC 32.5 g/dL (32.0-36.0); Mean Corpuscular Hemoglobin 29.7 pg (27.0-31.0); Mean Corpuscular Volume 91.2 fl (80.0-94.0); Mean Platelet Volume 8.4 fL (7.4-10.4); Platelet Count 183 thou/uL (130-400); RBC Distribution Width 13.5 % (11.5-14.5); Red Blood Cell (RBC) Count 4.15 mill/uL (4.70-6.10); White Blood Cell (WBC) Count 7.5 thou/uL (4.8-10.8)
[2018-02-11] MEDS: Mometasone/Formoterol 120 PUFF INHALER INH SCH ×2 (06:24→19:01)
--- NOTE | 2018-02-11 06:46 | PDOC.FM ---
- Subjective Subjective: Pt reports doing well. Denies any episodes of getting lightheaded or weak overnight. Denies any acute SOB. Denies any acute events overnight. Yesterday his blood pressure dropped to 70's/40's after going to the restroom. Bolused with 1 L of fluid. held blood pressure medications and lasix for the night and afternoon. BP has since stabilized and patient doing well. Denies any more episodes - Objective MAR Reviewed: Yes Vital Signs & Weight: Vital Signs (12 hours) Temp Pulse Resp BP Pulse Ox 02/11/18 06:24 68 12 02/11/18 04:00 98.7 F 66 20 127/61 96 02/10/18 19:45 97.8 F 60 20 136/61 100 Weight Admit Weight 93.531 kg Weight 87.453 kg I&O: 02/09/18 02/10/18 02/11/18 06:59 06:59 06:59 Intake Total 1787 1910 840 Output Total 2725 4655 700 Balance -931 -8194 140 Result Diagrams: 02/11/18 05:13 02/10/18 05:22 Radiology Reviewed by me: Yes <Ramy Roman - Last Filed: 02/11/18 06:44> - Objective Vital Signs & Weight: Vital Signs (12 hours) Temp Pulse Resp BP Pulse Ox 02/11/18 11:57 98.3 F 63 19 137/62 96 02/11/18 09:14 62 02/11/18 08:10 98.1 F 62 18 96 02/11/18 08:09 98.1 F 62 18 136/56 L 96 02/11/18 07:49 72 16 02/11/18 06:24 68 12 02/11/18 04:00 98.7 F 66 20 127/61 96 Weight Admit Weight 93.531 kg Weight 87.453 kg I&O: 02/10/18 02/11/18 02/12/18 06:59 06:59 06:59 Intake Total 1910 840 Output Total 4655 700 Balance -2745 140 Result Diagrams: 02/11/18 05:13 02/11/18 05:13 <Sandra Hancock - Last Filed: 02/11/18 12:30> Phys Exam - Physical Examination Constitutional: NAD HEENT: PERRLA, moist MMs Neck: no nodes, supple, full ROM Some rales and crackles noted, some mild wheezing noted Cardiovascular: RRR, no rub systolic murmur noted Gastrointestinal: soft, non-tender, no distention, positive bowel sounds Musculoskeletal: no edema, pulses present Neurological: non-focal, normal sensation, moves all 4 limbs Lymphatic: no nodes Psychiatric: normal affect, A&O x 3 Skin: no rash, normal turgor, cap refill <2 seconds <Ramy Roman - Last Filed: 02/11/18 06:44> Dx/Plan (1) CAD (coronary artery disease) Code(s): I25.10 - ATHSCL HEART DISEASE OF [place] CORONARY ARTERY W/O ANG PCTRS Status: Chronic (2) Acute exacerbation of congestive heart failure Code(s): I50.9 - HEART FAILURE, UNSPECIFIED Status: Acute QualifierTitle: Heart failure type: combined systolic and diastolic Qualified Code(s): I50.43 - Acute on chronic combined systolic (congestive) and diastolic (congestive) heart failure (3) ABDIEL (acute kidney injury) Code(s): N17.9 - ACUTE KIDNEY FAILURE, UNSPECIFIED Status: Acute (4) COPD (chronic obstructive pulmonary disease) Status: Chronic (5) HTN (hypertension) Code(s): I10 - ESSENTIAL (PRIMARY) HYPERTENSION Status: Chronic (6) Hepatitis C Code(s): B19.20 - UNSPECIFIED VIRAL HEPATITIS C WITHOUT HEPATIC COMA Status: Chronic (7) Aortic valve regurgitation Code(s): I35.1 - NONRHEUMATIC AORTIC (VALVE) INSUFFICIENCY Status: Acute - Plan Plan: CAD -Postop day 2 of RCA stent placement. -Has mod-severe occlusion of LAD- will observe for now - start high intensity statin -CTA Shows multiple calcifications in aorta and heart vessels -Cardio-Dr. Andrea consulted- follow recs- Stent -Recommend life vest but patient refused yesterday. -Started on Plavix -CV surgery-Dr. Roach consulted- follow recs- not good canidate for CABG Acute systolic CHF exacerbation 2/2 Aortic Regurg -ECHO shows EF 25-30%, mod-severe aortic regurg -CTA shows calcfication of aorta and multiple vessels in heart -CV surgery consulted- Dr. Roach- Possible CABG but poor canidate. Will follow recs - Switched to PO lasix at this time. - pt currently does not have a new O2 requirement - strict i/o - pt has not been taking his coreg for months, Coreg and lisinopril started on home doses he was on. BP dropped yesterday. Had episode of hypotension. Had to give a fluid bolus. Will cut back coreg and lisinopril to lowest doses and titrate up. HTN -BP stable this morning. Will start medications but at lower doses -started lisinopril and coreg back at home doses and BP got too low yesterday. Will cut back to lower doses of each and titrate up as much as he tolerates ABDIEL-Resolved at this time. - Continue to diurese, this is likely dt poor perfusion rather than low volume given overloaded status -Stable frome yesterday - Monitor BMP -no sign of CKD per GFR DM - per pt he has hx of dm, however he is not on any meds and A1c is 5.8 -Sugars Achs, sugars have been stable Hep C - Hep C positive. will need to f/u outpatient COPD - appears to be controlled at this time - continue home meds - monitor O2 sats and work of breathing -Duonebs PRN -On dulera and started Spireva at this time. -mucinex and tessalon for cough Elevated BNP - secondary to volume overload. Diurese as above With patients problems and having trouble with meds and managing his disease in the past patient would like possible or jail placement at this time so he can better take care of his HF and take his medications. Rehab placement in [facility] can go on Monday <Ramy Roman - Last Filed: 02/11/18 06:44> Attending Addendum - Attending Addendum Date/Time: 02/11/18 1230 I personally evaluated the patient and discussed the management with Dr. Roman. I agree with the History, Examination, Assessment and Plan documented above with any addition or exceptions noted below. The patient is feeling better this morning. He became hypotensive yesterday. Decreasing bp med doses today. Waiting on NH placement tomorrow. <Sandra Hancock - Last Filed: 02/11/18 12:30>
[2018-02-11 07:23] LABS: Anion Gap 12 mmol/L (10-20); BUN (Urea Nitrogen) 21 mg/dL (8.4-25.7); Calc. Creatinine Clearance 73 mL/min (70-130); Calcium 9.2 mg/dL (7.8-10.44); Carbon Dioxide 26 mmol/L (23-31); Chloride 101 mmol/L (98-107); Estimated GFR-MDRD 65; Glucose 139 mg/dL (83-110); Potassium 4.5 mmol/L (3.5-5.1); Sodium 134 mmol/L (136-145)
--- NOTE | 2018-02-11 08:42 | EKG ---
Test Reason : Blood Pressure : / mmHG Vent. Rate : 091 BPM Atrial Rate : 091 BPM P-R Int : 142 ms QRS Dur : 102 ms QT Int : 366 ms P-R-T Axes : 059 -01 252 degrees QTc Int : 450 ms Normal sinus rhythm Possible Left atrial enlargement Left ventricular hypertrophy with repolarization abnormality Abnormal ECG Confirmed by MIKE DORAN, MEGHANN ([id number]) on 02/11/2018 8:41:41 AM Referred By: MEMO Confirmed By:MEGHANN MCKEON MD
--- NOTE | 2018-02-11 08:53 | EKG ---
Test Reason : POST STENT-RCA Blood Pressure : / mmHG Vent. Rate : 052 BPM Atrial Rate : 052 BPM P-R Int : 164 ms QRS Dur : 110 ms QT Int : 484 ms P-R-T Axes : 068 -07 245 degrees QTc Int : 450 ms Sinus bradycardia Incomplete left bundle branch block Left ventricular hypertrophy with repolarization abnormality Abnormal ECG Confirmed by MEGHANN MCKEON MD ([id number]) on 02/11/2018 8:52:45 AM Referred By: MIKE Confirmed By:MEGHANN MCKEON MD
[2018-02-11] MEDS: Furosemide 20 MG TAB PO SCH ×2 (09:14→14:54)
[2018-02-11] MEDS: Lisinopril 2.5 MG TAB PO SCH (09:14)
[2018-02-11] MEDS: Gabapentin 300 MG CAP PO SCH ×3 (09:14→22:42)
[2018-02-11] MEDS: Benzonatate 100 MG CAP PO PRN (09:14)
[2018-02-11] MEDS: Clopidogrel Bisulfate 75 MG TAB PO SCH (09:14)
[2018-02-11] MEDS: Carvedilol 3.125 MG TAB PO SCH ×2 (09:14→18:02)
[2018-02-11] MEDS: guaiFENesin ER 600 MG TAB PO SCH ×2 (09:14→22:42)
[2018-02-11] MEDS: Aspirin 81 mg Enteric Coated Tablet PO SCH (09:15)
[2018-02-11] MEDS: Polyethylene Glycol 3350 17 GM Packet PER TUBE SCH (09:15)
--- NOTE | 2018-02-11 11:03 | PDOC.CTH ---
<Melonie Siegel - Last Filed: 02/11/18 13:05> Cardiology Progress Note - Subjective Awake, PT at bedside. States he is feeling okay today, much better than yesterday when blood pressure was low. Denies shortness of breath, chest pain, blurry vision. No overnight events, BP has remained stable. Plan is for discharge tomorrow to [facility] in [place]. - Objective Vital Signs Temp Pulse Resp BP Pulse Ox 02/11/18 09:14 62 02/11/18 08:10 98.1 F 62 18 96 02/11/18 08:09 98.1 F 62 18 136/56 L 96 02/11/18 07:49 72 16 02/11/18 06:24 68 12 02/11/18 04:00 98.7 F 66 20 127/61 96 Admit Weight 206 lb 3.2 oz Weight 192 lb 12.8 oz 02/10/18 02/11/18 02/12/18 06:59 06:59 06:59 Intake Total 1910 840 Output Total 4655 700 Balance -2745 140 - Physical Examination General/Neuro: alert & oriented x3, NAD Neck: no JVD present (neck veins flat, no distention) Lungs: other: (Diminished posterior BLL, diffuse wheezing t/o) Heart: RRR, other: (systolic murmur noted) Abdomen: NT/ND, soft Extremities: + edema B Other PE findings: Mild BLE edema, chronic venous stasis skin changes to BLE - Telemetry Telemetry Rhythm: SR 60s-70s - Labs Result Diagrams: 02/11/18 05:13 02/11/18 05:13 Troponin/CKMB CK-MB (CK-2) 2.1 ng/mL (0-6.6) 02/06/18 05:28 Troponin I 0.034 ng/mL (< 0.028) H 02/06/18 11:37 - Assessment/Plan 1. CAD-s/p stent to RCA, additional lesion to LAD, might require further intervention. Continue statin. CV consulted-poor candidate for CABG. Start clopidogrel 75mg daily. 2. Acute systolic CHF exacerbation-appears euvolemic, most recent EF 25%-30%. Rec life vest-patient refusing. PO furosemide 3. Aortic Regurgitation-echo revealed mod to severe AR. CTA showed calcification of aorta, poor candidate for AVR 4.HTN-episode hypotension 02/11 after ambulating to bathroom, improved after 1L bolus, carvedilol, lisinopril started at lowest dose, titrate up as tolerated 5. ABDIEL-Resolved, BUN/Creat normal this am. Continue PO furosemide 6. COPD-no oxygen requirement, sats stable on RA, cont pulm toilet Plan to discharge tomorrow to SNF in [place], [place]. <Homar Sands D - Last Filed: 02/11/18 14:48> Cardiology Progress Note - Objective Vital Signs Temp Pulse Resp BP Pulse Ox 02/11/18 11:57 98.3 F 63 19 137/62 96 02/11/18 09:14 62 02/11/18 08:10 98.1 F 62 18 96 02/11/18 08:09 98.1 F 62 18 136/56 L 96 02/11/18 07:49 72 16 02/11/18 06:24 68 12 02/11/18 04:00 98.7 F 66 20 127/61 96 Admit Weight 206 lb 3.2 oz Weight 192 lb 12.8 oz 02/10/18 02/11/18 02/12/18 06:59 06:59 06:59 Intake Total 1910 840 Output Total 4655 700 Balance -2745 140 - Labs Result Diagrams: 02/11/18 05:13 02/11/18 05:13 Troponin/CKMB CK-MB (CK-2) 2.1 ng/mL (0-6.6) 02/06/18 05:28 Troponin I 0.034 ng/mL (< 0.028) H 02/06/18 11:37 Attending Addendum - Attending Addendum Date/Time: 02/11/18 0558 I personally evaluated the patient and discussed the management with Melonie Siegel NP. I agree with the History, Examination, Assessment and Plan documented above with any addition or exceptions noted below.
[2018-02-11] MEDS: Acetaminophen/Codeine 30-300mg Tablet PO PRN (16:37)
[2018-02-11] MEDS: Atorvastatin Calcium 40 MG TAB PO SCH (22:42)
[2018-02-12] MEDS: Mometasone/Formoterol 120 PUFF INHALER INH SCH (07:04)
[2018-02-12] MEDS: Carvedilol 3.125 MG TAB PO SCH (08:25)
[2018-02-12] MEDS: Aspirin 81 mg Enteric Coated Tablet PO SCH (08:25)
[2018-02-12] MEDS: Clopidogrel Bisulfate 75 MG TAB PO SCH (08:25)
[2018-02-12] MEDS: Furosemide 20 MG TAB PO SCH ×2 (08:25→14:36)
[2018-02-12] MEDS: Lisinopril 2.5 MG TAB PO SCH (08:26)
[2018-02-12] MEDS: Polyethylene Glycol 3350 17 GM Packet PER TUBE SCH (08:26)
[2018-02-12] MEDS: guaiFENesin ER 600 MG TAB PO SCH (08:26)
[2018-02-12] MEDS: Gabapentin 300 MG CAP PO SCH ×2 (08:26→14:35)
--- NOTE | 2018-02-12 09:01 | PDOC.FM ---
- Subjective Subjective: Patient reports that his breathing has been much improved since the first day of hospitalization. He denies any SOB. He reports improvement in the swelling in his legs. He has been eating well. Denies any chest pain. Denies lightheadedness or dizziness. - Objective MAR Reviewed: Yes Vital Signs & Weight: Vital Signs (12 hours) Temp Pulse Resp BP BP Pulse Ox 02/12/18 08:18 98.5 F 74 18 168/76 H 97 02/12/18 07:04 82 16 95 02/12/18 07:03 59 L 18 95 02/12/18 04:05 97.5 F L 63 18 148/65 H 98 Weight Admit Weight 93.531 kg Weight 85.684 kg I&O: 02/11/18 02/12/18 02/13/18 06:59 06:59 06:59 Intake Total 840 2340 Output Total 700 3275 Balance 140 -935 Result Diagrams: 02/11/18 05:13 02/11/18 05:13 <Melonie Hunter - Last Filed: 02/12/18 08:59> - Objective Vital Signs & Weight: Vital Signs (12 hours) Temp Pulse Resp BP BP BP Pulse Ox 02/12/18 11:17 98 F 67 20 152/67 H 98 02/12/18 08:18 98.5 F 74 18 168/76 H 97 02/12/18 07:04 82 16 95 02/12/18 07:03 59 L 18 95 02/12/18 04:05 97.5 F L 63 18 148/65 H 98 Weight Admit Weight 93.531 kg Weight 85.684 kg I&O: 02/11/18 02/12/18 02/13/18 06:59 06:59 06:59 Intake Total 840 2340 Output Total 700 3275 Balance 140 -935 Result Diagrams: 02/11/18 05:13 02/11/18 05:13 <Jas Garcia - Last Filed: 02/12/18 14:10> Phys Exam - Physical Examination Constitutional: NAD HEENT: moist MMs Respiratory: no wheezing, no rales, no rhonchi, clear to auscultation bilateral Cardiovascular: RRR, no significant murmur, no rub Gastrointestinal: soft, non-tender, no distention, positive bowel sounds Musculoskeletal: pulses present, edema present (trace pitting edema in bilateral LE) Neurological: non-focal, moves all 4 limbs Psychiatric: normal affect, A&O x 3 Deviation from normal: chronic venous stasis appearing skin changes in BLE <Melonie Hunter - Last Filed: 02/12/18 08:59> Dx/Plan (1) Acute exacerbation of congestive heart failure Code(s): I50.9 - HEART FAILURE, UNSPECIFIED Status: Acute QualifierTitle: Heart failure type: combined systolic and diastolic Qualified Code(s): I50.43 - Acute on chronic combined systolic (congestive) and diastolic (congestive) heart failure (2) ABDIEL (acute kidney injury) Code(s): N17.9 - ACUTE KIDNEY FAILURE, UNSPECIFIED Status: Acute (3) Aortic valve regurgitation Code(s): I35.1 - NONRHEUMATIC AORTIC (VALVE) INSUFFICIENCY Status: Acute QualifierTitle: Cardiac valve disease etiology: nonrheumatic Qualified Code(s): I35.1 - Nonrheumatic aortic (valve) insufficiency (4) Aortic valve stenosis Code(s): I35.0 - NONRHEUMATIC AORTIC (VALVE) STENOSIS Status: Acute QualifierTitle: Cardiac valve disease etiology: nonrheumatic Qualified Code(s): I35.0 - Nonrheumatic aortic (valve) stenosis (5) Elevated troponin Code(s): R74.8 - ABNORMAL LEVELS OF OTHER SERUM ENZYMES Status: Acute (6) CAD (coronary artery disease) Code(s): I25.10 - ATHSCL HEART DISEASE OF [place] CORONARY ARTERY W/O ANG PCTRS Status: Chronic QualifierTitle: Coronary Disease-Associated Artery/Lesion type: [place] artery [place] vs. transplanted heart: minto heart Associated angina: angina presence unspecified Qualified Code(s): I25.10 - Atherosclerotic heart disease of [place] coronary artery without angina pectoris (7) COPD (chronic obstructive pulmonary disease) Status: Chronic QualifierTitle: COPD type: unspecified COPD Qualified Code(s): J44.9 - Chronic obstructive pulmonary disease, unspecified (8) HTN (hypertension) Code(s): I10 - ESSENTIAL (PRIMARY) HYPERTENSION Status: Chronic QualifierTitle: Hypertension type: essential hypertension Qualified Code( s): I10 - Essential (primary) hypertension (9) Hepatitis C Code(s): B19.20 - UNSPECIFIED VIRAL HEPATITIS C WITHOUT HEPATIC COMA Status: Chronic QualifierTitle: Viral hepatitis chronicity: unspecified Hepatic coma status: without hepatic coma Qualified Code(s): B19.20 - Unspecified viral hepatitis C without hepatic coma - Plan Plan: CAD POD 3 s/p RCA stent placement. Has mod-severe occlusion of LAD- will observe for now. CTA Shows multiple calcifications in aorta and heart vessels -start high intensity statin -Cardio-Dr. Andrea consulted- follow recs -Recommend life vest but patient refused yesterday. -Started on Plavix -CV surgery-Dr. Roach consulted- follow recs- not good candidate for CABG Acute on Chronic Systolic CHF exacerbation 2/2 Aortic Regurg ECHO shows EF 25-30%, mod-severe aortic regurg. BNP 3240. CTA shows calcfication of aorta and multiple vessels in heart Patient has diuresed well and is now asymptomatic with minimal edema. -Continue PO lasix at this time. -strict i/o -Pt had an episode of hypotension when he was restarted on home doses of lisinopril and coreg, so these were switched to the lowest doses. Will titrate up as tolerated. HTN -BP stable this morning. Will start medications but at lower doses -started lisinopril and coreg at lowest doses. Will titrate up as much as he tolerates ABDIEL-Resolved -Continue to diurese with PO lasix -Monitor, may have an element of CKD DM per pt he has hx of dm, however he is not on any meds and A1c is 5.8 -Sugars Achs, sugars have been stable Hep C Hep C positive. -Will need to f/u outpatient COPD Appears to be controlled at this time -continue home meds -monitor O2 sats and work of breathing -Duonebs PRN -On dulera and started Spireva at this time. -mucinex and tessalon for cough Dispo: SNF in [place]. Has been accepted. Plan to d/c today <Melonie Hunter - Last Filed: 02/12/18 08:59> Attending Addendum - Attending Addendum Date/Time: 02/12/18 3443 I personally evaluated the patient and discussed the management with Dr. Hunter. I agree with the History, Examination, Assessment and Plan documented above with any addition or exceptions noted below. Patient doing well from CHF standpoint and has no complaints. He is ready to be discharged to nursing facility in [place] this morning. <Jas Garcia - Last Filed: 02/12/18 14:10>
--- NOTE | 2018-02-12 09:45 | PRG ---
DATE OF SERVICE: 02/12/2018 SUBJECTIVE: Mr. Kruse is doing better today. He underwent stent placement on Monday. He is awai ting placement. PHYSICAL EXAMINATION: VITAL SIGNS: Blood pressure 160/76, pulse 74, and temperature 98.5. LUNGS: Clear to auscultation. CARDIAC: Regular rate and rhythm. ABDOMEN: Soft, nontender, nondistended. EXTREMITIES: No edema. PERTINENT LABORATORY DATA: Hemoglobin 12.3, creatinine 1.1. IMPRESSION: 1. Severe coronary artery disease. 2. Ischemic cardiomyopathy. 3. Noncompliance. RECOMMENDATIONS: Ms. Kruse has refused LifeVest. He understands the risks and benefits. He unde rwent stent placement on Monday and is doing well. He underwent a bare metal stent to the right kim nary artery. Recommend Plavix for at least 1 month, but patient understands, preferably would like f or him to be on for at least 6 months. He will be placed at a facility in [place]. He states he kiki l not be able to follow up in a stent will be following up in [place]. He is currently on aspirin in addition to carvedilol and Plavix as well as lisinopril. Otherwise, I have no further recommendation s.
[2018-02-12 11:20] VITALS: BP 152/67; TEMP 98
--- NOTE | 2018-02-14 03:30 | DIS-2 ---
DATE OF ADMISSION: 02/06/2018 DATE OF DISCHARGE: 02/12/2018 ADMITTING ATTENDING: Sourav Moss M.D. DISCHARGE ATTENDING: Jas Garcia M.D. CONSULTATIONS: Include Cardiology, Dr. Andrea, and Cardiovascular Surgery, Dr. Chris Roach. PROCEDURES: He had a heart cath on 02/07/2018, which showed severe occlusion of his RCA and showed [id number] stenosis of his LAD. He then would have another heart cath on 02/09/2018 for stent placement of the RCA. IMAGING: On 02/06/2018, he got an echocardiogram, which showed an EF of 25%-30% , LV appears dilated, hypokinetic motion of the anterior wall noted in the left ventricle, left atrium moderately dilated, aortic valve is sclerotic with normal excursion, and ruglkzyc-aq-swoken aortic regurg is noted as well and moderate mitral regurg is present. He also got a chest CT on 02/07/2018, which showed, 1. Prominent calcification involving the thoracic aorta and coronary arteries. 2. 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 3. Small bilateral pleural effusion. 4. Tiny right anterior pneumothorax. 5. Mild splenomegaly. PRIMARY DIAGNOSES: Include, 1. Coronary artery disease with right coronary artery stent placement. 2. Acute on chronic systolic congestive heart failure secondary to aortic regurgitation and mitral regurgitation. 3. Hypertension. 4. Acute kidney injury. 5. Prediabetes. 6. Hepatitis C. 7. Chronic obstructive pulmonary disease. DISCHARGE MEDICATIONS: Include, 1. Proventil 2 puffs inhaled q.6 hours p.r.n. as needed. 2. Aspirin 1 tab p.o. daily 81 mg. 3. Atorvastatin 40 mg p.o. at bedtime. 4. Tessalon 100 mg p.o. q.4 hours as needed. 5. Symbicort 2 puffs inhaled b.i.d. 6. Carvedilol 3.125 mg p.o. b.i.d. 7. Plavix 75 mg p.o. daily. 8. Furosemide 20 mg b.i.d. 9. Mucinex 600 mg p.o. q.12 hours as needed. 10. Combivent 2 puffs inhaled q.i.d. 11. Lisinopril 5 mg p.o. daily. 12. Nitroglycerin 0.4 mg tab sublingual p.r.n. 13. Protonix 1 tab p.o. daily. HISTORY OF PRESENT ILLNESS AND BRIEF HOSPITAL COURSE: This is a 73-year-old gentleman who came in with a complaint of progressive shortness of breath and exercise intolerance, which he has been noticing getting progressively worse for the last month. Over the last few days, he had not been able to lay down flat, felt like he was being waterboarded, said that he had significant swelling in his legs as well; reported having some chest pain as well. He reports having a history of heart failure and says that he would not have been taking his medications for about 4 months prior. He had recently been in shelter a few months before and had just gotten out. He says he drinks beer daily, has a history of marijuana and meth use as well. So, when he got here, his BNP was in the 3000's. His troponin was elevated at 0.045. There was some ST depression in his EKG as well. His troponin would trend up to 0.054 and 0.034 eventually. At this time, he was new to the area, did not have any establishment with Cardiology. At this time, we started him on IV Lasix, consulted Dr. Andrea with Cardiology who ended up cathing him on the after getting the results of the echo. He noted severe stenosis, thought he would need CABG. At that time, they consulted Dr. Roach with CV Surgery, who ended up getting a CT which showed all the calcifications. With the severe calcifications of his aorta and his vessels, Dr. Roach said he was not a good candidate for CABG, but due to the severe occlusion of the RCA, Dr. Andrea would take him back on the for a stenting of the RCA as he needed some intervention done for his vessels. During this time, we continued him on IV Lasix. We would eventually transition him to oral Lasix over the weekend, on the , to 20 mg. His blood pressure started to get low over the weekend while he is here. We tried sending him home on his home doses of lisinopril and carvedilol, which were significantly higher doses than what we have him on now, but his blood pressure was too low and did not tolerate, so we started him on the lowest doses of carvedilol and lisinopril and titrated up. We ended up titrating lisinopril to [address] Andrea recommended a LifeVest to him. He denied the LifeVest at this time. The patient said he was recently getting out of shelter, not taking his meds for the last few months, he would like to go somewhere like rehab or placement where he can help managing his disease. During this time, we got case management and found him placement in [facility]. Also, he reported having diabetes. We checked a hemoglobin A1c, which was 5.8. We would follow his sugars along, but never were they elevated enough that would make us think a diagnosis of diabetes. He had a history of COPD. He did have some wheezing, rales likely more due to fluid overload. He did not like taking the nebulizers, so we had him on p.r.n. 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 The patient did well while here and towards the end just awaited placement at the rehab center. He was approved and would go to rehab on discharge on Monday. Vitals were stable. No episodes of lower blood pressure at that time. We will continue titrating and following up with Dr. Andrea and his heart failure medications. DISPOSITION: Fair. DISCHARGE INSTRUCTIONS: 1. Location: [facility]. 2. Activity: Will need to work with PT cardiac rehabilitation. 3. Diet: A heart healthy, fluid restricted diet. 4. Followup: Will need to follow up with primary care provider within the next 14 days for hospital followup and will need to follow up with Dr. Andrea or Cardiology as scheduled. JULIANO
== END 2018-02-12 15:15 | DRG 248 ==
LOC: ERS 01:39 → 2NO 02:09
PROVIDERS: ADMIT Family Medicine; ATTEND Family Medicine
PROC: 4A023N7 Measurement of Cardiac Sampling and Pressure, Left Heart, Percutaneous Approach (ICD-10-PCS; principal; 2018-02-07)
PROC: B2111ZZ Fluoroscopy of Multiple Coronary Arteries using Low Osmolar Contrast (ICD-10-PCS; 2018-02-07)
PROC: B2151ZZ Fluoroscopy of Left Heart using Low Osmolar Contrast (ICD-10-PCS; 2018-02-07)
PROC: 02703DZ Dilation of Coronary Artery, One Artery with Intraluminal Device, Percutaneous Approach (ICD-10-PCS; 2018-02-09)
PROC: B2111ZZ Fluoroscopy of Multiple Coronary Arteries using Low Osmolar Contrast (ICD-10-PCS; 2018-02-09)
DX: I25.10 Atherosclerotic heart disease of native coronary artery without angina pectoris (principal); I50.43 Acute on chronic combined systolic (congestive) and diastolic (congestive) heart failure; N17.9 Acute kidney failure, unspecified; I95.9 Hypotension, unspecified; I25.82 Chronic total occlusion of coronary artery; I71.2 Thoracic aortic aneurysm, without rupture; I24.8 Other forms of acute ischemic heart disease; J93.9 Pneumothorax, unspecified; I11.0 Hypertensive heart disease with heart failure; T82.855A Stenosis of coronary artery stent, initial encounter; I08.0 Rheumatic disorders of both mitral and aortic valves; E11.9 Type 2 diabetes mellitus without complications; I25.5 Ischemic cardiomyopathy; R16.1 Splenomegaly, not elsewhere classified; J44.9 Chronic obstructive pulmonary disease, unspecified; I45.4 Nonspecific intraventricular block; I70.0 Atherosclerosis of aorta; B18.2 Chronic viral hepatitis C; F17.210 Nicotine dependence, cigarettes, uncomplicated; F19.10 Other psychoactive substance abuse, uncomplicated; F12.10 Cannabis abuse, uncomplicated; F15.10 Other stimulant abuse, uncomplicated; Z66 Do not resuscitate; I25.2 Old myocardial infarction; Z91.19 Patient's noncompliance with other medical treatment and regimen
CPT/HCPCS: 36415; 36416; 71250; 76942; 80048; 80053; 80061; 82553; 83036; 84443; 84484; 85025; 85347; 86780; 86803; 87389; 87522; 92928; 93005; 93010; 93306; 93454; 93458; 93567; 93798; 94640; 99152; 99153; 99406; A4216; C1725; C1769; C1876; C1887; G8978-GP-CJ; G8979-GP-CI; G8987-GO-CJ; G8988-GO-CI; J1644; J1650; J1940; J2001; J2250; J3010; J3246; J7620